=== PATIENT | male | born 1955 | race Caucasian/White ===

== ENCOUNTER 2018-03-18 17:34 | Emergency (ER) | payer BC ==
[2018-03-18 18:14] VITALS: BP 145/93
--- NOTE | 2018-03-18 20:08 | UC ---
Knee Pain HPI - HPI Summary HPI Summary: 62-year-old male with sudden onset of left knee pain while playing tennis this afternoon. States he was running to intercept a ball, planted his foot, felt a sudden pop, and fell to the ground unable to support his weight. He has been unable to bear weight or ambulate since the injury. Complains of anterior and medial knee pain with mild swelling. Denies extremity numbness or tingling. - History of Current Complaint Chief Complaint: UCLowerExtremity Stated Complaint: KNEE INJURY Time Seen by Provider: 03/18/18 19:17 Hx Obtained From: Patient Onset/Duration: Sudden Onset Severity Initially: Moderate Severity Currently: Moderate Pain Intensity: 6 Character: Throbbing Aggravating Factor(s): Movement Alleviating Factor(s): Rest Associated Signs And Symptoms: Positive: Swelling, Weakness. Negative: Redness , Bruising, Numbness, Tingling Able to Bear Weight: No - Allergies/Home Medications Allergies/Adverse Reactions: Allergies Allergy/AdvReac Type Severity Reaction Status Date / Time No Known Allergies Allergy Verified 03/18/18 18:15 PMH/Surg Hx/FS Hx/Imm Hx Previously Healthy: Yes - Denies significant PMH - Surgical History Surgical History: None - Family History Family History: Noncontributory - Social History Occupation: Employed Full-time Lives: With Family Alcohol Use: Rare Substance Use Type: None Smoking Status (MU): Never Smoked Tobacco Review of Systems Constitutional: Negative Skin: Negative Respiratory: Negative Cardiovascular: Negative Motor: Decreased ROM Neurovascular: Negative Musculoskeletal: Other: - See HPI Neurological: Negative Is Patient Immunocompromised?: No All Other Systems Reviewed And Are Negative: Yes Physical Exam Triage Information Reviewed: Yes Appearance: Well-Appearing, No Pain Distress, Obese Vital Signs: Initial Vital Signs Temp 98.7 F 03/18/18 18:08 Pulse 89 03/18/18 18:08 Resp 16 03/18/18 18:08 BP 145/93 03/18/18 18:08 Pulse Ox 98 03/18/18 18:08 Vital Signs Reviewed: Yes Respiratory: Positive: No respiratory distress Cardiovascular: Positive: Pulses Normal, Brisk Capillary Refill Musculoskeletal: Positive: ROM Limited @ - Left knee, Edema @ - Left medial knee , Other: - Mildly tender medial joint line. Sigificant tenderness over anterior knee. Moderate amount of swelling. No erythema or ecchymosis. Negative valgus and vargus stress. Negative anterior and posterior drawer. Diagnostics - Radiology No standard instances Radiology Interpretation Completed By: ED Physician Summary of Radiographic Findings: Superior displacement patella suggestive of a patellar tendon rupture Knee Pain Course/Dx - Course Course Of Treatment: 62 year old male presents with sudden onset of left knee pain while playing tennis. Planted foot after running and felt sudden pop, falling to ground unable to support weight. Nonweight bearing since injury. Exam revealed anterior and medial knee tenderness with swelling. X-ray shows a superiorly displaced patella likely representing a complete tear of the patellar tendon. Will place patient in knee immobilizer, provide crutches for non-weight bearing, naproxen for pain management, and RICE. Case was discussed with Dr. Ward who is in agreement with assessment and POC. Patient is to call office Wednesday for appointment for further evaluation. Warning symptoms were discussed with patient. Verbalizes understanding and agrees with POC. - Differential Dx/Diagnosis Differential Diagnosis/HQI/PQRI: Dislocation, Fracture (Closed), Strain Provider Diagnoses: Left patellar tendon rupture - Physician Notifications Discussed Patient Care With: Wendie Ward - Agrees with assessment and POC. Time Discussed With Above Provider: 20:00 Instructed by Provider To: Have Pt Call For Appt. Discharge - Sign-Out/Discharge Documenting (check all that apply): Patient Departure All imaging exams completed and their final reports reviewed: No - Discharge Plan Condition: Stable Disposition: HOME Prescriptions: Naproxen [Naproxen 500 mg tab] 500 mg PO Q12HR PRN #30 tablet PRN Reason: Pain Patient Education Materials: Crutch Instructions (ED), Knee Immobilizer (ED), Tendon Rupture (ED) Referrals: Kenrick Hernandez MD [Primary Care Provider] - Wendie Ward MD [Medical Doctor] - Additional Instructions: The X-ray performed in the clinic tonight showed a displacement of your patella (knee cap) likely from a ruptured patellar tendon. Wear the knee use the knee immobilizer that was applied in the clinic. You may remove to shower and dress but should wear at all other times. Do not bear weight on that leg. Use the crutches that were provided to you. Rest the leg as much as possible. Apply ice to the knee for 15-20 minutes at least 4 times a day to help reduce swelling. Keep the leg elevated to reduce swelling. Take naproxen 1 tab every 12 hours with food as needed for pain. Follow up with Dr. Ward, orthopedic surgery, for evaluation. Call Wednesday for an appointment. Seek immediate medical attention in the emergency room if you have pain that is not managed with pain medication, develop increased swelling, numbness or tingling in the foot or toes, chest pain, shortness of breath, or any worsening of symptoms. - Billing Disposition and Condition Condition: STABLE Disposition: Home
--- NOTE | 2018-03-19 08:46 | RAD ---
INDICATION: Left knee pain after twisting injury while playing tennis COMPARISON: None TECHNIQUE: 4 view radiograph of the left knee. FINDINGS: Degenerative changes include narrowing of the patellofemoral joint evident on the sunrise view. There is a mild degree of loss of the medial compartment with mild sclerotic change of the medial tibial plateau. The patella is displaced superiorly on the AP and lateral views relative to the femoral condyles. IMPRESSION: The patella appears to be displaced superiorly indicating the possibility of rupture of the infrapatellar tendon. This is consistent with the patient's physical exam findings superior imaging characterization can be made with MRI of the knee. R0
--- NOTE | 2018-03-20 08:10 | UC ---
- Progress Note Progress Note: XR: IMPRESSION: The patella appears to be displaced superiorly indicating the possibility of rupture of the infrapatellar tendon. This is consistent with the patient's physical exam findings superior imaging characterization can be made with MRI of the knee. No change in plan of care Course/Dx - Provider Notifications Time Discussed With Above Provider: 20:00 Instructed by Provider To: Have Pt Call For Appt. Discharge - Sign-Out/Discharge Documenting (check all that apply): Post-Discharge Follow Up All imaging exams completed and their final reports reviewed: Yes - Discharge Plan Condition: Stable Disposition: HOME Prescriptions: Naproxen [Naproxen 500 mg tab] 500 mg PO Q12HR PRN #30 tablet PRN Reason: Pain Patient Education Materials: Crutch Instructions (ED), Knee Immobilizer (ED), Tendon Rupture (ED) Referrals: Kenrick Hernandez MD [Primary Care Provider] - Wendie Ward MD [Medical Doctor] - Additional Instructions: The X-ray performed in the clinic tonight showed a displacement of your patella (knee cap) likely from a ruptured patellar tendon. Wear the knee use the knee immobilizer that was applied in the clinic. You may remove to shower and dress but should wear at all other times. Do not bear weight on that leg. Use the crutches that were provided to you. Rest the leg as much as possible. Apply ice to the knee for 15-20 minutes at least 4 times a day to help reduce swelling. Keep the leg elevated to reduce swelling. Take naproxen 1 tab every 12 hours with food as needed for pain. Follow up with Dr. Ward, orthopedic surgery, for evaluation. Call Wednesday for an appointment. Seek immediate medical attention in the emergency room if you have pain that is not managed with pain medication, develop increased swelling, numbness or tingling in the foot or toes, chest pain, shortness of breath, or any worsening of symptoms. - Billing Disposition and Condition Condition: STABLE Disposition: Home
== END 2018-03-18 20:34 | disposition home or self-care (01) ==
LOC: UCEAST 17:34
DX: S76.112A Strain of left quadriceps muscle, fascia and tendon, initial encounter (principal); X50.9XXA Other and unspecified overexertion or strenuous movements or postures, initial encounter; Y93.73 Activity, racquet and hand sports; Y92.89 Other specified places as the place of occurrence of the external cause
CPT/HCPCS: 99213; G0463

== ENCOUNTER 2018-03-22 08:17 | Day surgery (SDC) | payer BC ==
--- NOTE | 2018-03-21 16:07 | HP ---
HISTORY AND PHYSICAL: DATE OF ADMISSION: 03/22/18 He is coming into [facility] for repair of his left knee patellar tendon on 03/22/18. CHIEF COMPLAINT: Left thigh and knee pain, swelling and unable to support his weight. HISTORY OF PRESENT ILLNESS: The patient was injured playing tennis at [facility] [employer] on 03/18/18. He does not know exactly what happened, but he knows he had just hit a shot, he was trying to get back to be ready to hit the next shot when his left knee had this injury. When he looked down, the knee had deformity anteriorly and then he knew that it would not support him. He was seen and checked in the emergency room. He has had x-rays of the knee. Pain has been pretty well under control. He has been in a knee immobilizer and has crutches. No previous such injury. The patient has been carefully evaluated. We feel he has rupture of his left patellar tendon and surgical care has been recommended. PAST MEDICAL HISTORY: He has never had a blood transfusion. He has no history of DVT or pulmonary embolism. PAST SURGICAL HISTORY: T and A. MEDICATIONS: He is not on any daily medications. ALLERGIES: He has no allergies. FAMILY HISTORY: Noncontributory. 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 He will be returning to [place] later this year. No smoking. One to 2 drinks per month. REVIEW OF SYSTEMS: He has not had a heart attack. He has no problems with chest pain or shortness of breath. He is able to walk up 2 flight of stairs without chest pain, without shortness of breath. No cancers. No history of DVT or pulmonary embolism. PHYSICAL EXAMINATION GENERAL: Somewhat overweight, not acutely distressed except regarding the left knee. HEENT: The head is NC/AT. The cranial nerves are grossly intact. LUNGS: Clear bilaterally. HEART: Regular. S1 and S2 normal. No murmurs or gallops. ABDOMEN: Round, soft, nontender. No organomegaly is appreciated. EXTREMITIES: The left lower extremity, very swollen distal left thigh and knee with ecchymoses anteromedial left knee and there is tenderness of the patella and the patellar tendon region. The patella seems to be high riding. The knee is nontender medially and laterally. The medial and lateral left knee are stable. His thigh has some tenderness anteriorly. Posterior knee nontender. Calf nontender. Medial and lateral knee nontender and he is tender over the patellar tendon region and slightly over the tibial tubercle. He is unable to do a straight leg raise on the left leg. He is able to flex the left knee 30 to 40 degrees with discomfort left anterior knee. Left posterior tibial pulse is 2+ and the left ankle has active movements up and down, in and out. No swelling of the ankle and foot. DIAGNOSTIC STUDIES: The radiographs were reviewed taken on 03/18/18 and these show a high riding left patella consistent with a rupture of the patellar tendon. IMPRESSION: Left patellar tendon rupture. PLAN: Left patellar tendon surgical repair. I reviewed the surgery carefully with him today, the general course of getting over the patellar tendon injury with very gradual return to sports after 6 months, but he will be able to weight bear as tolerated on the left foot right away. He will be keeping the left knee extended for the first 4 to 8 weeks. Plans as above. His questions were answered. [id number]/[facility] #: [id number] DAMIEN
[~2018-03-22 08:17] MED LIST: Buffered Lidocaine 0.9% SYRIN* 5 ML/SYR SYRINGE INTRADERM ONE
[2018-03-22] MEDS ORDERED: ceFAZolin 2 GM PREMIX in ORs 2 GM/50 ML BAG IVPB ONE (08:29)
[2018-03-22] MEDS ORDERED: Lidocaine 2% PF * 5 ML VIAL ONE ×2 (08:33→09:55)
[2018-03-22] MEDS ORDERED: Propofol* 10 MG/ML 20 ML BTL IV PUSH ONE (08:33)
[2018-03-22] MEDS ORDERED: Rocuronium* 10 MG/ML VIAL ONE (09:03)
[2018-03-22] MEDS ORDERED: HYDROmorphone INJ1* 1 MG/ML SYRINGE ONE (09:15)
[2018-03-22] MEDS ORDERED: Glycopyrrolate IV* 0.2 MG/ML 1 ML VIAL ONE (09:17)
[2018-03-22] MEDS ORDERED: Neostigmine Methylsulfate* 1 MG/ML 10 ML VIAL (1 mg/ml) ONE (09:17)
[2018-03-22] MEDS ORDERED: Ketorolac INJ* 30 MG/ML 1 ML VIAL ONE (09:18)
[2018-03-22] MEDS ORDERED: Bupivacaine 0.25% W/EPI* 10 ML SDV ONE (09:48)
[2018-03-22] MEDS ORDERED: Bupivacaine 0.5% SDV PF* 30ML VIAL ONE (09:55)
[2018-03-22] MEDS ORDERED: Bupivacaine 0.5% W/EPI SDV* 30 ML VIAL ONE (09:55)
[2018-03-22] MEDS ORDERED: Midazolam* 1 MG/ML 2 ML VIAL (2 MG) ONE (09:56)
[2018-03-22] MEDS ORDERED: KETAMINE HCL* 50 MG/ML 10 ML VIAL ONE (10:34)
[2018-03-22] MEDS ORDERED: Propofol* 500 MG/50 ML BTL ONE (10:34)
[2018-03-22] MEDS ORDERED: oxyCODONE TAB* 5 MG TAB PO PRN (11:17)
[2018-03-22] MEDS ORDERED: HYDROmorphone INJ1* 1 MG/ML SYRINGE IV PRN (11:17)
[2018-03-22] MEDS ORDERED: Ketorolac INJ* 30 MG/ML 1 ML VIAL IV PRN (11:17)
[2018-03-22] MEDS ORDERED: Naloxone* 0.4 MG/ML 1 ML VIAL IV PRN (11:17)
[2018-03-22] MEDS ORDERED: Acetaminophen IV 1GM/100ML * 1,000 MG/100 ML VIAL IVPB ONE (11:17)
[2018-03-22] MEDS ORDERED: Ondansetron INJ* 2 MG/ML VIAL IV PRN (11:17)
[2018-03-22] MEDS ORDERED: Acetaminophen IV 1GM/100ML * 100 ML ONE (12:12)
[2018-03-22] MEDS ORDERED: ceFAZolin 500 MG VIAL(*) 500 MG VIAL IVPB ONE (12:14)
[2018-03-22] MEDS ORDERED: ceFAZolin 1 GM VIAL(*) ONE (12:37)
[2018-03-22] MEDS ORDERED: ceFAZolin 1 GM ADVAN(*) 1 GM ADDV.VIAL IVPB ONE (12:39)
[2018-03-22] MEDS ORDERED: ceFAZolin 1 GM ADVAN(*) 1 GM in NS 0.9% 50 ML* 50 ML IVPB ONE (12:43)
[2018-03-22 15:09] VITALS: BP 149/86
--- NOTE | 2018-03-23 06:35 | OP ---
DATE OF OPERATION: 03/22/18 - [facility] DATE OF : 53. SURGEON: Simon Edwards MD. OPTICAL ELEMENT COATER: BAKARI Kamara, wheelchair van operator first responder. ANESTHESIOLOGIST: Dr. Fierro. ANESTHESIA: Spinal and IV sedation. PRE-OP DIAGNOSIS: Rupture of the left patellar tendon. POST-OP DIAGNOSIS: Rupture of the left patellar tendon. OPERATIVE PROCEDURE: Repair of the left patellar tendon to the patella and repair of the medial and lateral retinaculum. OPERATIVE INDICATIONS: Rupture of the patellar tendon with patella sujey seen on x-rays when he was in the emergency room on 03/18/18. The patient was seen, checked, and evaluated carefully by me in my office on 03/21/18. COMPLICATIONS: None. DRAINS: None. ESTIMATED BLOOD LOSS: Blood loss was 50 mL. FLUIDS: Replacement was 1 L of crystalloid fluids. DESCRIPTION OF PROCEDURE: The patient was brought to the operating room and placed on the operating room table in supine position following the administration of the spinal anesthetic, which was done in the sitting position , and then in the left lateral position. The left lower extremity was noted to have a 2+ posterior tibial pulse and the left proximal thigh was wrapped to the tourniquet. The left leg was given a preliminary chlorhexidine prep and then a final ChloraPrep from the tourniquet to the tips of the toes. After prepping, draping, and sealing off, we did our universal protocol time-out confirming Tawny Hallter and the plan for left knee repair of the patellar tendon. We all agreed and we proceeded. The leg was exsanguinated and the knee was flexed, and the patella was pulled distally. The tourniquet was elevated to 275. A skin incision was some slightly lateral, but into the anterior midline. The skin and subcu divided over the patella and patellar tendon down to the pathology, and the pathology was immediately evident and the medial and lateral retinacula were torn. Patellar tendon was torn completely and the knee was visible after irrigating out some clot. The anterior proximal 4 cm of the patellar tendon was in 1 layer , and this was then preserved by reflecting it medially and laterally, sharply, to expose the distal pole of the patella underneath it, and then the distal pole of the patella was cleaned with rongeur, curette, and a bur. Three drill holes were then made in the distal pole of the patella going to the proximal anterior patellar surface and pull through sutures were placed here for the repair. The patellar tendon was then repaired with #2 Ethibond baseball stitches going down the lateral side across the tendon and up to the medial side and down the lateral side up the middle of the tendon; then, from the middle of the tendon, down and up the medial side to end up with three groups of two sutures of #2 Ethibond. The knee was then irrigated with a liter of saline irrigation solution. These three bundles of sutures were then pulled through the three drill holes medial mid and lateral. The knee was hyperextended and the sutures were tied. The lateral and middle bundles tied first and then that the knot was tied through the medial bundle. The medial and lateral retinaculum were torn completely. Each was then repaired with three interrupted [id number] #1 Vicryl sutures. The proximal portion of patellar tendon was then sutured to the anterior aspect of the repaired tendon distally with interrupted figure-of- eight 2-0 Vicryl. We then irrigated again and the deep fascia was closed with interrupted 2-0 Vicryl. The superficial subcu closed with the same and then the kadie on the skin. The knee was infiltrated with Marcaine 0.5% of 10 mL and then 20 mL were put into skin and subcu, an inch away from the skin incision on either side. The knee was washed and dried, and covered with Betadine soaked Release, then the sterile gauze and a cryotherapy cuff, ABD pads , further Webril, and then a 6-inch León bandage loosely applied. The patient's posterior tibial pulse is 2+ and the patient was returned to the recovery room in stable and satisfactory condition having tolerated the procedure very well. [id number]/[facility] #: [id number] [facility]
== END 2018-03-22 16:34 | disposition home or self-care (01) ==
LOC: OR 08:17
PROVIDERS: ATTEND Orthopaedic Surgery
DX: S76.112A Strain of left quadriceps muscle, fascia and tendon, initial encounter (principal); X50.0XXA Overexertion from strenuous movement or load, initial encounter; Y93.59 Activity, other involving other sports and athletics played individually; Y92.312 Tennis court as the place of occurrence of the external cause
CPT/HCPCS: 93005; J0690; J1170; J1885; J2250; J2704; J2710